=== PATIENT | female | born 1980 | race Caucasian/White ===

== ENCOUNTER 2020-10-04 20:22 | Inpatient (IN) | payer MEDICARE, MEDICAID ==
--- NOTE | 2020-10-04 21:31 | ED ---
Psych HPI <Jose Juan Rich - Last Filed: 10/05/20 02:49> - General Source: patient, police Mode of arrival: ambulatory <Tonny Mujica - Last Filed: 10/05/20 03:18> - General Chief Complaint: Psychiatric Symptoms Stated Complaint: Mental Health Time Seen by Provider: 10/04/20 20:32 - History of Present Illness Initial Comments: 40-year-old female with extensive psychiatric history presents to the emergency department for psychiatric evaluation. Patient brought to the ED via police. Patient states she was brought here to have her medication reevaluated and adjusted. Patient states she is to take antipsychotic medications but then was off of them for some period of time. Patient reports now she is taking her medication accordingly but has started drinking again. States she had a couple of beers earlier today. She does report feeling depressed and that "life is not worth living close with physician." she denies any suicidal, homicidal thoughts or ideations at this time. She has no other complaints. (Tonny Mujica) - Related Data Allergies Allergy/AdvReac Type Severity Reaction Status Date / Time haloperidol [From Haldol] Allergy Rash/Hives Verified 10/04/20 20:30 Review of Systems ROS Other: All systems not noted in ROS Statement are negative. <CandidaaldoJose Juan - Last Filed: 10/05/20 02:49> ROS Other: All systems not noted in ROS Statement are negative. <Tonny Mujica - Last Filed: 10/05/20 03:18> ROS Statement: Those systems with pertinent positive or pertinent negative responses have been documented in the HPI. Past Medical History Past Medical History: Hypertension History of Any Multi-Drug Resistant Organisms: None Reported Past Surgical History: Coronary Bypass/CABG, Heart Catheterization With Stent Past Psychological History: Anxiety, Bipolar, Depression, Panic Disorder, PTSD, Schizophrenia Smoking Status: Current every day smoker Past Alcohol Use History: Daily Past Drug Use History: Marijuana <Tonny Mujica - Last Filed: 10/05/20 03:18> General Exam Limitations: no limitations General appearance: alert, in no apparent distress Head exam: Present: atraumatic, normocephalic, normal inspection Eye exam: Present: normal appearance, PERRL, EOMI Pupils: Present: normal accommodation ENT exam: Present: normal exam, normal oropharynx, mucous membranes moist Neck exam: Present: normal inspection, full ROM. Absent: tenderness Respiratory exam: Present: normal lung sounds bilaterally. Absent: respiratory distress Cardiovascular Exam: Present: regular rate, normal rhythm, normal heart sounds Extremities exam: Present: normal inspection, full ROM, normal capillary refill Back exam: Present: normal inspection, full ROM. Absent: tenderness, CVA tenderness (R), CVA tenderness (L) Neurological exam: Present: alert, oriented X3 Psychiatric exam: Present: normal affect, depressed Skin exam: Present: warm, dry, intact, normal color <Tonny Mujica - Last Filed: 10/05/20 03:18> Course Vital Signs 10/04/20 10/05/20 20:23 02:49 Temperature 99.4 F Pulse Rate 98 80 Respiratory 18 17 Rate Blood Pressure 181/129 131/77 O2 Sat by Pulse 97 98 Oximetry Medical Decision Making - Lab Data Result diagrams: 10/04/20 23:47 10/04/20 23:47 <Jose Juan Rich - Last Filed: 10/05/20 02:49> - Lab Data Result diagrams: 10/04/20 23:47 10/04/20 23:47 <Tonny Mujica - Last Filed: 10/05/20 03:18> - Medical Decision Making I saw this patient in conjunction with the physician bilingual medical assistant. I performed independent history and physical exam. Agree with case management. Clinical certification get filed (Jose Juan Rich) 40-year-old female with extensive psychiatric history presents to emergency department with psychiatric evaluation. On physical examination, patient is very anxious and is requesting adjustments to her medication. She also reports drinking more unusual as of recently. She isn't on any homicidal, suicidal thoughts or ideations. Urine drug screen positive for marijuana. A PSA value patient. Patient will be admitted for further psychiatric management. case discused with dr rich (Tonny Mujica) - Lab Data Lab Results 10/04/20 10/04/20 10/04/20 Range/Units 21:25 21:25 23:47 WBC 7.1 (3.8-10.6) k/uL RBC 4.73 (3.80-5.40) m/uL Hgb 14.9 (11.4-16.0) gm/dL Hct 45.9 (34.0-46.0) % MCV 97.1 (80.0-100.0) fL MCH 31.6 (25.0-35.0) pg MCHC 32.5 (31.0-37.0) g/dL RDW 15.6 H (11.5-15.5) % Plt Count 310 (150-450) k/uL MPV 7.3 Neutrophils % 59 % Lymphocytes % 30 % Monocytes % 5 % Eosinophils % 3 % Basophils % 2 % Neutrophils # 4.2 (1.3-7.7) k/uL Lymphocytes # 2.2 (1.0-4.8) k/uL Monocytes # 0.3 (0-1.0) k/uL Eosinophils # 0.2 (0-0.7) k/uL Basophils # 0.1 (0-0.2) k/uL Sodium (137-145) mmol/L Potassium (3.5-5.1) mmol/L Chloride (98-107) mmol/L Carbon Dioxide (22-30) mmol/L Anion Gap mmol/L BUN (7-17) mg/dL Creatinine (0.52-1.04) mg/dL Est GFR (CKD-EPI)AfAm (>60 ml/min/1.73 sqM) Est GFR (CKD-EPI)NonAf (>60 ml/min/1.73 sqM) Glucose (74-99) mg/dL Calcium (8.4-10.2) mg/dL Total Bilirubin (0.2-1.3) mg/dL AST (14-36) U/L ALT (4-34) U/L Alkaline Phosphatase (38-126) U/L Total Protein (6.3-8.2) g/dL Albumin (3.5-5.0) g/dL Urine HCG, Qual Not Detected (Not Detectd) Urine Opiates Screen Not Detected (NotDetected) Ur Oxycodone Screen Not Detected (NotDetected) Urine Methadone Screen Not Detected (NotDetected) Ur Propoxyphene Screen Not Detected (NotDetected) Ur Barbiturates Screen Not Detected (NotDetected) U Tricyclic Antidepress Not Detected (NotDetected) Ur Phencyclidine Scrn Not Detected (NotDetected) Ur Amphetamines Screen Not Detected (NotDetected) U Methamphetamines Scrn Not Detected (NotDetected) U Benzodiazepines Scrn Not Detected (NotDetected) Urine Cocaine Screen Not Detected (NotDetected) U Marijuana (THC) Screen Detected H (NotDetected) Coronavirus (PCR) (Not Detectd) 10/04/20 10/04/20 Range/Units 23:47 23:59 WBC (3.8-10.6) k/uL RBC (3.80-5.40) m/uL Hgb (11.4-16.0) gm/dL Hct (34.0-46.0) % MCV (80.0-100.0) fL MCH (25.0-35.0) pg MCHC (31.0-37.0) g/dL RDW (11.5-15.5) % Plt Count (150-450) k/uL MPV Neutrophils % % Lymphocytes % % Monocytes % % Eosinophils % % Basophils % % Neutrophils # (1.3-7.7) k/uL Lymphocytes # (1.0-4.8) k/uL Monocytes # (0-1.0) k/uL Eosinophils # (0-0.7) k/uL Basophils # (0-0.2) k/uL Sodium 136 L (137-145) mmol/L Potassium 4.5 (3.5-5.1) mmol/L Chloride 100 (98-107) mmol/L Carbon Dioxide 28 (22-30) mmol/L Anion Gap 8 mmol/L BUN 5 L (7-17) mg/dL Creatinine 0.68 (0.52-1.04) mg/dL Est GFR (CKD-EPI)AfAm >90 (>60 ml/min/1.73 sqM) Est GFR (CKD-EPI)NonAf >90 (>60 ml/min/1.73 sqM) Glucose 121 H (74-99) mg/dL Calcium 9.5 (8.4-10.2) mg/dL Total Bilirubin 0.5 (0.2-1.3) mg/dL AST 32 (14-36) U/L ALT 17 (4-34) U/L Alkaline Phosphatase 34 L (38-126) U/L Total Protein 7.6 (6.3-8.2) g/dL Albumin 4.1 (3.5-5.0) g/dL Urine HCG, Qual (Not Detectd) Urine Opiates Screen (NotDetected) Ur Oxycodone Screen (NotDetected) Urine Methadone Screen (NotDetected) Ur Propoxyphene Screen (NotDetected) Ur Barbiturates Screen (NotDetected) U Tricyclic Antidepress (NotDetected) Ur Phencyclidine Scrn (NotDetected) Ur Amphetamines Screen (NotDetected) U Methamphetamines Scrn (NotDetected) U Benzodiazepines Scrn (NotDetected) Urine Cocaine Screen (NotDetected) U Marijuana (THC) Screen (NotDetected) Coronavirus (PCR) Not Detected (Not Detectd) Disposition <Jose Juan Rich - Last Filed: 10/05/20 02:49> Is patient prescribed a controlled substance at d/c from ED?: No Time of Disposition: 03:18 <Tonny Mujica - Last Filed: 10/05/20 03:18> Clinical Impression: Adjustment reaction of adult life Disposition: ADMITTED IP TO THIS HOSP Condition: Good
[2020-10-04 22:05] LABS: Amphetamine Screen,Urine Not Detected (NotDetected); Barbiturate Screen,Urine Not Detected (NotDetected); Benzodiazepines Screen,Urine Not Detected (NotDetected); Cocaine Screen,Urine Not Detected (NotDetected); Methadone Screen, Urine Not Detected (NotDetected); Opiate Screen,Urine Not Detected (NotDetected); Oxycodone Screen, Urine Not Detected (NotDetected); Phencyclidine Screen,Urine Not Detected (NotDetected); Tricyclic Antidepressant,Urine Not Detected (NotDetected); Urn Cannabinoid Scrn Detected (NotDetected)
[2020-10-04] MEDS ORDERED: LORazepam 2 MG/ML INJ IV STA (23:49)
[2020-10-04 23:56] LABS: Basophils # (A) 0.1 k/uL (0-0.2); Basophils % (A) 2 %; Eosinophils # (A) 0.2 k/uL (0-0.7); Eosinophils % (A) 3 %; HCT 45.9 % (34.0-46.0); HGB 14.9 gm/dL (11.4-16.0); Lymphocytes # (A) 2.2 k/uL (1.0-4.8); Lymphocytes % (A) 30 %; MCH 31.6 pg (25.0-35.0); MCHC 32.5 g/dL (31.0-37.0); MCV 97.1 fL (80.0-100.0); Mean Platelet Volume 7.3; Monocytes # (A) 0.3 k/uL (0-1.0); Monocytes % (A) 5 %; Neutrophils # (A) 4.2 k/uL (1.3-7.7); Neutrophils % (A) 59 %; Platelet Count 310 k/uL (150-450); RBC 4.73 m/uL (3.80-5.40); RDW 15.6 % (11.5-15.5); WBC 7.1 k/uL (3.8-10.6)
[2020-10-05 00:06] LABS: ALT 17 U/L (4-34); AST 32 U/L (14-36); African American GFR (CKD) >90 (>60 ml/min/1.73 sqM); Albumin 4.1 g/dL (3.5-5.0); Alkaline Phosphatase 34 U/L (38-126); Anion Gap 8 mmol/L; Blood Urea Nitrogen 5 mg/dL (7-17); Calcium 9.5 mg/dL (8.4-10.2); Carbon Dioxide 28 mmol/L (22-30); Chloride 100 mmol/L (98-107); Glucose 121 mg/dL (74-99); Non-African American GFR(CKD) >90 (>60 ml/min/1.73 sqM); Potassium 4.5 mmol/L (3.5-5.1); Sodium 136 mmol/L (137-145); Total Bilirubin 0.5 mg/dL (0.2-1.3); Total Protein 7.6 g/dL (6.3-8.2)
[2020-10-05] MEDS ORDERED: MAGNESIUM HYDROXIDE 2,400 MG/10 ML CUP PO PRN (02:21)
[2020-10-05] MEDS ORDERED: MAG HYDROX/AL HYDROX/SIMETH 30 ML CUP PO PRN (02:21)
[2020-10-05] MEDS ORDERED: LORazepam 2 MG/ML INJ IM PRN (02:24)
[2020-10-05] MEDS: NICOTINE 14MG/24HR PATCH TRANSDERM SCH (05:03)
[2020-10-05] MEDS: LORazepam 1 MG TAB PO PRN ×3 (05:03→23:58)
[2020-10-05] MEDS ORDERED: flUPHENAZine 2.5 MG/ML (MDV) 10 ML VIAL IM PRN (06:00)
--- NOTE | 2020-10-05 10:22 | P.HP ---
Psychiatric H&P - . H&P Date: 10/05/20 History & Physical: Allergies Allergy/AdvReac Type Severity Reaction Status Date / Time haloperidol From Haldol Allergy Rash/Hives Verified 10/05/20 05:14 Vital Signs Temp 98.1 F 10/05/20 05:20 Pulse 91 10/05/20 09:00 Resp 20 10/05/20 05:20 BP 141/100 10/05/20 09:00 Pulse Ox 98 10/05/20 02:49 Intake & Output 10/04/20 10/05/20 10/05/20 18:59 06:59 18:59 Weight 56.699 kg Laboratory Last Values WBC 7.1 k/uL (3.8-10.6) 10/04/20 23:47 RBC 4.73 m/uL (3.80-5.40) 10/04/20 23:47 Hgb 14.9 gm/dL (11.4-16.0) 10/04/20 23:47 Hct 45.9 % (34.0-46.0) 10/04/20 23:47 MCV 97.1 fL (80.0-100.0) 10/04/20 23:47 MCH 31.6 pg (25.0-35.0) 10/04/20 23:47 MCHC 32.5 g/dL (31.0-37.0) 10/04/20 23:47 RDW 15.6 % (11.5-15.5) H 10/04/20 23:47 Plt Count 310 k/uL (150-450) 10/04/20 23:47 MPV 7.3 10/04/20 23:47 Neutrophils % 59 % 10/04/20 23:47 Lymphocytes % 30 % 10/04/20 23:47 Monocytes % 5 % 10/04/20 23:47 Eosinophils % 3 % 10/04/20 23:47 Basophils % 2 % 10/04/20 23:47 Neutrophils # 4.2 k/uL (1.3-7.7) 10/04/20 23:47 Lymphocytes # 2.2 k/uL (1.0-4.8) 10/04/20 23:47 Monocytes # 0.3 k/uL (0-1.0) 10/04/20 23:47 Eosinophils # 0.2 k/uL (0-0.7) 10/04/20 23:47 Basophils # 0.1 k/uL (0-0.2) 10/04/20 23:47 Sodium 136 mmol/L (137-145) L 10/04/20 23:47 Potassium 4.5 mmol/L (3.5-5.1) 10/04/20 23:47 Chloride 100 mmol/L (98-107) 10/04/20 23:47 Carbon Dioxide 28 mmol/L (22-30) 10/04/20 23:47 Anion Gap 8 mmol/L 10/04/20 23:47 BUN 5 mg/dL (7-17) L 10/04/20 23:47 Creatinine 0.68 mg/dL (0.52-1.04) 10/04/20 23:47 Est GFR (CKD-EPI)AfAm >90 (>60 ml/min/1.73 sqM) 10/04/20 23:47 Est GFR (CKD-EPI)NonAf >90 (>60 ml/min/1.73 sqM) 10/04/20 23:47 Glucose 121 mg/dL (74-99) H 10/04/20 23:47 Calcium 9.5 mg/dL (8.4-10.2) 10/04/20 23:47 Total Bilirubin 0.5 mg/dL (0.2-1.3) 10/04/20 23:47 AST 32 U/L (14-36) 10/04/20 23:47 ALT 17 U/L (4-34) 10/04/20 23:47 Alkaline Phosphatase 34 U/L (38-126) L 10/04/20 23:47 Total Protein 7.6 g/dL (6.3-8.2) 10/04/20 23:47 Albumin 4.1 g/dL (3.5-5.0) 10/04/20 23:47 Urine HCG, Qual Not Detected (Not Detectd) 10/04/20 21:25 Urine Opiates Screen Not Detected (NotDetected) 10/04/20 21:25 Ur Oxycodone Screen Not Detected (NotDetected) 10/04/20 21:25 Urine Methadone Screen Not Detected (NotDetected) 10/04/20 21:25 Ur Propoxyphene Screen Not Detected (NotDetected) 10/04/20 21:25 Ur Barbiturates Screen Not Detected (NotDetected) 10/04/20 21:25 U Tricyclic Antidepress Not Detected (NotDetected) 10/04/20 21:25 Ur Phencyclidine Scrn Not Detected (NotDetected) 10/04/20 21:25 Ur Amphetamines Screen Not Detected (NotDetected) 10/04/20 21:25 U Methamphetamines Scrn Not Detected (NotDetected) 10/04/20 21:25 U Benzodiazepines Scrn Not Detected (NotDetected) 10/04/20 21:25 Urine Cocaine Screen Not Detected (NotDetected) 10/04/20 21:25 U Marijuana (THC) Screen Detected (NotDetected) H 10/04/20 21:25 Coronavirus (PCR) Not Detected (Not Detectd) 10/04/20 23:59 10/05/20 10:13 IDENTIFYING DATA: Patient is a 40-year-old female currently lives with a friend in a house is single and has 4 kids who she is currently estranged from. HPI: Patient presented to the hospital yesterday on a waste picker order by the police for psychiatric evaluation. According to petition, stated that patient had been talking to people that are not around and being scared that she will hurt herself and has been self-medicating and "talking about stuff that never happened". The petition was filled out by patient's longtime friend. Patient reported that she had been off her psychiatric medications according to ER report and has been drinking about 2 beers a day and been feeling depressed and mentioned suicidal thoughts. Patient was positive for THC in her UDS. Patient was seen in the hallways and agreeable technical proposal writer. She appeared to have poor hygiene and grooming however was attempting to be cooperative with process description writer. She claims that she was trying to get help at [facility] however became aggravated with them and claims that she was "waiting too long". She states that she had only been living in the area for about 2 weeks now and is from [facility]. She states that she was staying in a friend's house and claims that the police were called to pick her up and take her to the hospital which she agreed to. She states that she stopped taking her medications Seroquel lithium and Klonopin several months ago however claims that she wanted to get restarted back on her medications. She claims that she was feeling sad and worthless and also endorsed hopelessness. She claims that she's been feeling depressed and having suicidal thoughts at times. She endorsed anxiety. She claims that she has been drinking daily approximately 2 beers a day and states that she is having withdrawal symptoms at this time and has been hospitalized in the past for alcohol withdrawal. She states that she has been having poor sleep and poor appetite. She claims that she has been hearing voices in the past however not currently. Patient denies any suicidal or homicidal ideations intent or plan. At this time patient denies any auditory or visual hallucinations. Patient denies any flight of ideas racing thoughts and increased in goal directed behavior. Patient admits to using cigarettes daily, alcohol as noted above. She states that she smokes marijuana daily. PAST PSYCHIATRIC HISTORY: Patient states that she has a history of schizoaffective disorder. She claims that she used to be on lithium, Seroquel and Klonopin. She states that she has had multiple psychiatric hospitalizations in the past including at [facility] and [facility]. She states that she was attempting to get follow-up at [facility]. She states that she overdosed once in the past and also used to cut herself. PMH: Hypertension, TBI, CAD with history of CABG. ALLERGIES: as per EMR CHEMICAL DEPENDENCY HISTORY: as per HPI FAMILY PSYCHIATRIC/SUBSTANCE USE HISTORY: States that her father suffered from depression. SOCIAL HISTORY: Patient was born and raised in [place]. She states that she completed up to the eighth grade of school and then dropped out. She states that she has been to snf twice in the past for assault and battery charges. She claims that she currently lives with a friend in a house is single and has 4 kids were strangers to her.. MENTAL STATUS EXAM: General Appearance: Patient appears to be disheveled in appearance, older than stated age is alert, directable, and attempts to cooperate. Patient appears to have poor hygiene and grooming. Behavior: Patient is seated without any agitated behavior. Directable. Speech: Patient's speech is fluent and nonpressured. Soft tone of voice Mood/Affect: Patient reports their mood is depressed and anxious, affect is congruent and constricted. Suicidality/Homicidality: Patient denies having any homicidal ideation intent or plan. Denies any suicidal ideations intent or plan Perceptions: Patient denies any visual hallucinations and denies any auditory hallucinations Though content/process: Rambles, tangential/circumstantial. Logical. Denies any paranoia or delusions. Memory and concentration: AOX3, grossly intact for the purposes of this session. Can spell "WORLD" backwards Judgment and insight: poor STRENGTHS/WEAKNESSES: strength is that patient is resilient. Weakness is that patient has poor judgment INTELLECT: average IMPRESSIONS: Schizoaffective disorder, depressive type History of TBI Alcohol use disorder, currently in withdrawal Cannabis use disorder Nicotine dependence PLAN: -Patient is admitted under voluntary status to [facility] for stabilization of psychiatric symptoms and safety. Patient has signed adult voluntary form and medication consent and is placed in patient's chart. -Medications : Will start patient on Seroquel 50 mg daily at bedtime for mood stabilization/insomnia. Will also start patient on lithium 300 mg twice a day for mood stabilization. We'll start Librium taper, 25 mg 3 times a day. -Ativan and Haldol PRN for agitation/aggression -Started thiamine, MVM for etoh use -CIWA protocol with Ativan PRN for ETOH withdrawal -Patient was counselled on substance abuse and desired to cut back on use however was refusing rehab -Patient was informed of the risks, benefits and side effects of the medication and patient verbally consented to taking the medications. Patient signed med consent form and was placed in chart. -Internal Medicine consult to perform medical evaluation and physical. -NRT - nicotine patch -SW on board for discharge planning. Encourage patient to participate in groups to work on coping skills.
[2020-10-05] MEDS: chlordiazePOXIDE 25 MG CAP PO SCH ×3 (12:39→21:13)
[2020-10-05] MEDS: LITHIUM CARBONATE 300 MG CAP PO SCH ×2 (12:39→21:12)
[2020-10-05] MEDS ORDERED: QUEtiapine 50 MG TAB PO SCH (21:00)
--- NOTE | 2020-10-06 02:27 | P.PN ---
Progress Note - Text Progress Note Date: 10/05/20 i was unable to evaluate patient , she was very upset to be woken up and started using foul and threatening language please contact sounds physicians when patient is more stable and appropriate for evaluation .
[2020-10-06] MEDS: LITHIUM CARBONATE 300 MG CAP PO SCH ×2 (08:52→21:09)
[2020-10-06] MEDS: NICOTINE 14MG/24HR PATCH TRANSDERM SCH (08:52)
[2020-10-06] MEDS: chlordiazePOXIDE 25 MG CAP PO SCH ×3 (08:54→21:09)
[2020-10-06] MEDS: LORazepam 1 MG TAB PO PRN ×2 (08:54→22:38)
--- NOTE | 2020-10-06 10:35 | P.PN ---
Progress Note - Text Progress Note Date: 10/06/20 Interval history: Patient was seen resting in bed and was directable and agreeable to speak with production underwriter. The patient states that she feels agitated but is able to control her anger. She states that she has been trying to meditate in order to deal with "all those who are taking advantage and using me."at this time, the patient is not reporting any suicidal or homicidal ideation, intention, and/or plan. She is not reporting any auditory or visual hallucinations. She does appear to be somewhat paranoid stating that there have been many people taking advantage of her and her "abilities" outside of this hospital. She does express that she has the ability to read energy and people and to channel it. She has been adherent with her medications and is not reporting any significant side effects at this time. Mental status exam: General Appearance: [Patient appears to be stated age is alert, directable, and cooperative.] The patient has multiple tattoos. Behavior: [No agitated behavior. Patient is calm and directable]. The patient appears to try to meditate while talking with this provider. Eye contact is intermittent. Speech: Patient's speech is fluent and nonpressured. Mood/Affect: Mood is described as irritable, affect is bizarre but otherwise euthymic. Suicidality/Homicidality: Patient denies having any suicidal or homicidal ideation intent or plan. Perceptions: Patient denies any auditory or visual hallucinations. Though content/process: Some delusional thought content in the form paranoia is endorsed. Thought process appears to have some loose associations. Some magical thinking. Memory and concentration: AOX3, grossly intact for the purposes of this session Judgment and insight: improving mildly Assessment/Plan: Continue with current diagnosis. Patient continues to meet criteria for inpatient psychiatric admission for symptom stabilization and safety. We will increase the patient's lithium to 75 mg by mouth at bedtime for mood stabilization/insomnia. We will continue her current medication regimen of lithium and her Librium. We will begin to taper Librium tomorrow pending CIWA. Monitor for medication compliance and for any psychotropic medication side effects. Will continue to monitor ongoing response to treatment. Encouraged participation in milieu.
[2020-10-06] MEDS: ACETAMINOPHEN TAB 325 MG TAB PO PRN (10:52)
[2020-10-06] MEDS: LIDOCAINE 5% PATCH TOPICAL SCH (11:18)
[2020-10-06 15:33] LABS: Hemoglobin A1C 5.3 % (4.0-6.0)
[2020-10-06] MEDS: QUEtiapine 25 MG TAB PO SCH (21:09)
[2020-10-07] MEDS: chlordiazePOXIDE 25 MG CAP PO SCH ×2 (08:45→20:22)
[2020-10-07] MEDS: LORazepam 1 MG TAB PO PRN (08:45)
[2020-10-07] MEDS: LITHIUM CARBONATE 300 MG CAP PO SCH ×2 (08:45→20:21)
[2020-10-07] MEDS: NICOTINE 14MG/24HR PATCH TRANSDERM SCH (09:10)
[2020-10-07] MEDS: LIDOCAINE 5% PATCH TOPICAL SCH (09:10)
--- NOTE | 2020-10-07 10:49 | P.PN ---
Progress Note - Text Progress Note Date: 10/07/20 Interval history: Patient was seen resting in bed and was directable and agreeable to speak with commercial underwriter. The patient reports that she is feeling tired. She states that the medications that she is currently receiving are "just with the doctor ordered." The patient is not reporting any suicidal or homicidal ideation, intention, and/or plan. She is not reporting any auditory or visual hallucinations. She has been adherent with her medications and is not reporting any significant side effects at this time. Patient states that she is glad to be sleeping as she has not slept for weeks prior to this admission. She is not reporting any chest pain, shortness of breath, palpitations, or nausea. Mental status exam: General Appearance: Patient appears to be somnolent, slightly disheveled, and has multiple tattoos. Behavior: Normal psychomotor activity today. Somnolent. Poor eye contact. Speech: Patient's speech is nonspontaneous, low in volume, and minimal. Mood/Affect: Mood is described as tired, affect is blunted. Suicidality/Homicidality: Patient denies having any suicidal or homicidal ideation intent or plan. Perceptions: Patient denies any auditory or visual hallucinations. Though content/process: Currently the patient is not endorsing any delusional thought content. Thought process appears to be linear and logical. Memory and concentration: AOX3, grossly intact for the purposes of this session Judgment and insight: improving mildly Assessment/Plan: Continue with current diagnosis. Patient continues to meet criteria for inpatient psychiatric admission for symptom stabilization and safety. We will continue the patient's Seroquel at 75 mg at bedtime. Continue lithium at her current dose. CIWA score of 5. We will start taper of librium to 25 mg twice daily for alcohol withdrawal. Monitor for medication compliance and for any psychotropic medication side effects. Will continue to monitor ongoing response to treatment. Encouraged participation in milieu.
[2020-10-07] MEDS: QUEtiapine 25 MG TAB PO SCH (20:21)
[2020-10-08 04:46] VITALS: RESP 18
[2020-10-08] MEDS: ACETAMINOPHEN TAB 325 MG TAB PO PRN (05:14)
[2020-10-08 05:18] LABS: Glucose,Whole Blood 103 mg/dL (75-99)
[2020-10-08] MEDS: LORazepam 1 MG TAB PO PRN ×2 (06:58→15:37)
[2020-10-08] MEDS: LIDOCAINE 5% PATCH TOPICAL SCH (08:05)
[2020-10-08] MEDS: NICOTINE 14MG/24HR PATCH TRANSDERM SCH (08:06)
[2020-10-08] MEDS: LITHIUM CARBONATE 300 MG CAP PO SCH ×2 (08:06→21:02)
[2020-10-08] MEDS: chlordiazePOXIDE 25 MG CAP PO SCH (08:09)
--- NOTE | 2020-10-08 10:25 | P.PN ---
Progress Note - Text Progress Note Date: 10/08/20 Interval History: Patient was seen wandering the hallways and was directable and agreeable to sp clarisa with quality analyst/technical writer in the office. Patient was initially calm and cooperative with quality analyst/technical writer. She was rambling significantly today was tangential in her thought process. She spoke about feeling like a "lab rat for so many years". She spoke about her different medications that she been on in the past and was fairly preoccupied today with being restarted back on her Klonopin. She refused several other medications to help with anxiety and was fairly focused on Klonopin and states that "it's the only thing that works for me". She was however agreeable to be started on a low dose of Zoloft instead. She states that she is having odd dreams at night time and was explaining them to quality analyst/technical writer. She states that she feels her mood is less labile on the current medications. She states that she is trying to go to some groups and participate as best as she can. She adamantly refused rehab today and believe that quality analyst/technical writer was trying to "ridicule me" by suggesting going to rehab. She was however interested in going to a partial hospitalization program upon discharge. At this time patient denies any suicidal or homical ideations, intent or plan. Patient denies any auditory, visual hallucinations. Patient denies any side effects from the medications and has been compliant with meds. Mental Status Exam: General Appearance: Patient appears to be disheveled in appearance, older than stated age is alert, directable, and attempts to cooperate. Patient appears to have mildly improving hygiene and grooming. Behavior: Patient is seated without any agitated behavior. Directable however argumentative at times. Speech: Patient's speech is fluent and nonpressured. Soft tone of voice Mood/Affect: Patient reports their mood is "getting there", affect is congruent and constricted. Suicidality/Homicidality: Patient denies having any homicidal ideation intent or plan. Denies any suicidal ideations intent or plan Perceptions: Patient denies any visual hallucinations and denies any auditory hallucinations Though content/process: Rambles, tangential/circumstantial. Logical. Denies any paranoia or delusions. Argumentative at times. Memory and concentration: AOX3, grossly intact for the purposes of this session. Can spell "WORLD" backwards Judgment and insight: poor, improving mildly Assessment Schizoaffective disorder, depressive type History of TBI Alcohol use disorder, currently in withdrawal Cannabis use disorder Nicotine dependence Plan: -Patient continues to meet criteria for inpatient psychiatric admission for symptom stabilization and safety. Patient has signed adult voluntary form and medication consent and was placed in patient's chart. -Medications: Will increase Seroquel to 100 mg daily at bedtime for mood stabilization/insomnia. Continue lithium 300 mg twice a day for mood stabilization. Continue to taper Librium. -thiamine, MVM for etoh use -CIWA protocol with Ativan PRN for ETOH withdrawal -When necessary Ativan and Haldol for agitation/aggression. -NRT - nicotine patch -SW on board for discharge planning. Encouraged the patient to participate in milieu. Patient continues to be refusing rehab and however was interested in doing a partial hospitalization program. soap worker to look into program today for patient and looking at possible discharge in 1-2 days
[2020-10-08] MEDS: SERTRALINE 25 MG TAB PO SCH (11:35)
[2020-10-08] MEDS ORDERED: QUEtiapine 100 MG TAB PO SCH (21:00)
[2020-10-08] MEDS ORDERED: chlordiazePOXIDE 25 MG CAP PO ONE (21:00)
[2020-10-09 04:17] VITALS: BP 122/84; PULSE 104; TEMP 97.5
[2020-10-09] MEDS ORDERED: chlordiazePOXIDE 25 MG CAP PO ONE (09:00)
[2020-10-09] MEDS: NICOTINE 14MG/24HR PATCH TRANSDERM SCH (09:38)
[2020-10-09] MEDS: LITHIUM CARBONATE 300 MG CAP PO SCH (09:38)
[2020-10-09] MEDS: SERTRALINE 25 MG TAB PO SCH (09:38)
[2020-10-09] MEDS: LIDOCAINE 5% PATCH TOPICAL SCH (09:47)
--- NOTE | 2020-10-09 11:30 | P.DS ---
Providers Date of admission: 10/05/20 02:18 Expected date of discharge: 10/09/20 Attending physician: Ryan Galicia MD Consults: 10/05/20 02:21 Consult Physician Routine Consulting Provider: Jake Lemon Consult Reason/Comments: H and P Do you want consulting provider notified?: Yes Primary care physician: Stated None - Discharge Diagnosis(es) (1) Schizoaffective disorder, depressive type Current Visit: Yes Status: Acute Priority: High (2) History of traumatic brain injury Current Visit: Yes Status: Acute Priority: Medium (3) Alcohol abuse Current Visit: Yes Status: Acute Priority: High (4) Cannabis use disorder, mild, abuse Current Visit: Yes Status: Acute Priority: Low (5) Nicotine dependence Current Visit: Yes Status: Acute Priority: Low Hospital Course: Admission HPI: Admission note was completed by senior mortgage underwriter "Patient is a 40-year-old female currently lives with a friend in a house is single and has 4 kids who she is currently estranged from. Patient presented to the hospital yesterday on a coal picker order by the police for psychiatric evaluation. According to petition, stated that patient had been talking to people that are not around and being scared that she will hurt herself and has been self-medicating and "talking about stuff that never happened". The petition was filled out by patient's longtime friend. Patient reported that she had been off her psychiatric medications according to ER report and has been drinking about 2 beers a day and been feeling depressed and mentioned suicidal thoughts. Patient was positive for THC in her UDS. Patient was seen in the hallways and agreeable gag writer. She appeared to have poor hygiene and grooming however was attempting to be cooperative with senior mortgage underwriter. She claims that she was trying to get help at [facility] however became aggravated with them and claims that she was "waiting too long". She states that she had only been living in the area for about 2 weeks now and is from [facility]. She states that she was staying in a friend's house and claims that the police were called to pick her up and take her to the hospital which she agreed to. She states that she stopped taking her medications Seroquel lithium and Klonopin several months ago however claims that she wanted to get restarted back on her medications. She claims that she was feeling sad and worthless and also endorsed hopelessness. She claims that she's been feeling depressed and having suicidal thoughts at times. She endorsed anxiety. She claims that she has been drinking daily approximately 2 beers a day and states that she is having withdrawal symptoms at this time and has been hospitalized in the past for alcohol withdrawal. She states that she has been having poor sleep and poor appetite. She claims that she has been hearing voices in the past however not currently. Patient denies any suicidal or homici maribell ideations intent or plan. At this time patient denies any auditory or visual hallucinations. Patient denies any flight of ideas racing thoughts and increased in goal directed behavior. Patient admits to using cigarettes daily, alcohol as noted above. She states that she smokes marijuana daily." Hospital course: Upon admission to the unit patient was initially bizarre/psychotic and depresse d. Patient was initially involuntary however directable and agreeable to commence treatment and signed adult voluntary form. Patient got along well with other patients on the unit and followed unit protocol. Patient was compliant with the medications and denied any side effects throughout hospital course. Patient was started on Seroquel and titrated up to dose of 100 mg daily at bedtime for mood stabilization/insomnia. Patient was also started on lithium and titrated up to a dose of 300 mg twice a day for mood stabilization. Patient was also started on Zoloft and titrated up to dose of 50 mg daily for mood/anxiety. Patient was placed on a Librium taper for alcohol withdrawal along with CIWA protocol and Ativan as needed. Patient spoke of her stressors and engaged in therapy both group and individual. Patient was also seen by medical team for history and physical exam. Throughout the course of the hospitalization patient gradually improved with regards to mood, anxiety, psychosis, sleep and displayed improvement in her insight and judgment back to baseline. On the day of discharge patient denied any suicidal or homicidal ideations intent or plan denied any auditory or visual hallucinations. Patient endorsed wanting to live for her future and her health. The patient denied any access to guns or weapons. Patient denied any paranoia and did not endorse any delusions. Patient does have a significant history of substance abuse and was counseled on abstaining from all substances including alcohol and marijuana. Patient was offered however declined inpatient substance-abuse rehab. Patient elected to do outpatient substance use treatment program through [facility]. Patient was also counseled on the medications and need for regular compliance and was encouraged to follow-up with their outpatient appointment for mental health and also for primary care. Prior to discharge a family meeting will be arranged with patient's friend over the phone by social work therapist to answer any questions and ensure safety upon discharge. Patient will be discharged to her friend's house with follow-up at [facility]. Patient refused any medications for alcohol cravings. Mental status exam: General Appearance: Patient appears to be older than stated age is alert, directable, and cooperative. Patient is in no acute distress and has improved hygiene and grooming Behavior: Patient is calmly seated without any agitated behavior. Speech: Patient's speech is fluent and nonpressured. Mood/Affect: Patient reports their mood is "fine", affect is congruent Suicidality/Homicidality: Patient denies having any suicidal or homicidal ideation intent or plan. Perceptions: Patient denies any auditory or visual hallucinations. Though content/process: There is no evidence of any delusional thought content and thought process is linear and goal-directed. Rambles at times. Memory and concentration: AOX3, grossly intact for the purposes of this session. Can spell "WORLD" backwards correctly. Judgment and insight: chronically poor, however has improved with guarded prognosis Impression: Schizoaffective disorder, depressive type History of TBI Alcohol abuse Cannabis use disorder Nicotine dependence Plan: -Continue with discharge today as patient has improved and stabilized psychiatrically and is not currently an imminent threat to herself and/or others. Patient will remain at chronically elevated risk for harm to self and/or others due to her polysubstance abuse and chronically poor insight and judgment. -Continue medications: Continue Seroquel 100 mg daily at bedtime for mood stabil ization/psychosis, Zoloft 50 mg daily for mood/anxiety, lithium 300 mg twice a day for mood stabilization. -Patient was counseled on the need for medication compliance and appropriate follow-up at mental health and also primary care for medical issues. Patient verbalized understanding and agreed. -Social work to arrange for and conduct family meeting to ensure safety upon discharge and answer any questions/concerns. Social work also to arrange for patients follow up appointments with [facility] for psychiatric care along with follow up with primary care provider. -Patient counseled on abstaining from recreational drugs and marijuana and alcohol. Was informed/educated on the adverse effects on their physical and mental health. Patient verbally agreed and understood. Patient was offered substance abuse treatment however declined at this time and wanted to do outpatient treatment. Patient also declined alcohol cravings medications. -Patient was instructed to return to the hospital or seek immediate medical care if their psychiatric or medical symptoms do worsen or reoccur. Allergies Allergy/AdvReac Type Severity Reaction Status Date / Time haloperidol [From Haldol] Allergy Rash/Hives Verified 10/05/20 05:14 Laboratory Results WBC 7.1 k/uL (3.8-10.6) 10/04/20 23:47 RBC 4.73 m/uL (3.80-5.40) 10/04/20 23:47 Hgb 14.9 gm/dL (11.4-16.0) 10/04/20 23:47 Hct 45.9 % (34.0-46.0) 10/04/20 23:47 MCV 97.1 fL (80.0-100.0) 10/04/20 23:47 MCH 31.6 pg (25.0-35.0) 10/04/20 23:47 MCHC 32.5 g/dL (31.0-37.0) 10/04/20 23:47 RDW 15.6 % (11.5-15.5) H 10/04/20 23:47 Plt Count 310 k/uL (150-450) 10/04/20 23:47 MPV 7.3 10/04/20 23:47 Neutrophils % 59 % 10/04/20 23:47 Lymphocytes % 30 % 10/04/20 23:47 Monocytes % 5 % 10/04/20 23:47 Eosinophils % 3 % 10/04/20 23:47 Basophils % 2 % 10/04/20 23:47 Neutrophils # 4.2 k/uL (1.3-7.7) 10/04/20 23:47 Lymphocytes # 2.2 k/uL (1.0-4.8) 10/04/20 23:47 Monocytes # 0.3 k/uL (0-1.0) 10/04/20 23:47 Eosinophils # 0.2 k/uL (0-0.7) 10/04/20 23:47 Basophils # 0.1 k/uL (0-0.2) 10/04/20 23:47 Sodium 136 mmol/L (137-145) L 10/04/20 23:47 Potassium 4.5 mmol/L (3.5-5.1) 10/04/20 23:47 Chloride 100 mmol/L (98-107) 10/04/20 23:47 Carbon Dioxide 28 mmol/L (22-30) 10/04/20 23:47 Anion Gap 8 mmol/L 10/04/20 23:47 BUN 5 mg/dL (7-17) L 10/04/20 23:47 Creatinine 0.68 mg/dL (0.52-1.04) 10/04/20 23:47 Est GFR (CKD-EPI)AfAm >90 (>60 ml/min/1.73 sqM) 10/04/20 23:47 Est GFR (CKD-EPI)NonAf >90 (>60 ml/min/1.73 sqM) 10/04/20 23:47 Glucose 121 mg/dL (74-99) H 10/04/20 23:47 POC Glucose (mg/dL) 103 mg/dL (75-99) H 10/08/20 05:16 POC Glu Director Of Digital Platforms ID Indio Davalos 10/08/20 05:[address] Glu mg/dL 105 10/06/20 02:00 Hemoglobin A1c 5.3 % (4.0-6.0) 10/06/20 02:00 Calcium 9.5 mg/dL (8.4-10.2) 10/04/20 23:47 Total Bilirubin 0.5 mg/dL (0.2-1.3) 10/04/20 23:47 AST 32 U/L (14-36) 10/04/20 23:47 ALT 17 U/L (4-34) 10/04/20 23:47 Alkaline Phosphatase 34 U/L (38-126) L 10/04/20 23:47 Total Protein 7.6 g/dL (6.3-8.2) 10/04/20 23:47 Albumin 4.1 g/dL (3.5-5.0) 10/04/20 23:47 Triglycerides 105 mg/dL (<150) 10/06/20 02:00 Cholesterol 201 mg/dL (<200) H 10/06/20 02:00 LDL Cholesterol, Calc 118 mg/dL (0-99) H 10/06/20 02:00 HDL Cholesterol 62 mg/dL (40-60) H 10/06/20 02:00 TSH 1.980 mIU/L (0.465-4.680) 10/06/20 02:00 Urine HCG, Qual Not Detected (Not Detectd) 10/04/20 21:25 Urine Opiates Screen Not Detected (NotDetected) 10/04/20 21:25 Ur Oxycodone Screen Not Detected (NotDetected) 10/04/20 21:25 Urine Methadone Screen Not Detected (NotDetected) 10/04/20 21:25 Ur Propoxyphene Screen Not Detected (NotDetected) 10/04/20 21:25 Ur Barbiturates Screen Not Detected (NotDetected) 10/04/20 21:25 U Tricyclic Antidepress Not Detected (NotDetected) 10/04/20 21:25 Ur Phencyclidine Scrn Not Detected (NotDetected) 10/04/20 21:25 Ur Amphetamines Screen Not Detected (NotDetected) 10/04/20 21:25 U Methamphetamines Scrn Not Detected (NotDetected) 10/04/20 21:25 U Benzodiazepines Scrn Not Detected (NotDetected) 10/04/20 21:25 Urine Cocaine Screen Not Detected (NotDetected) 10/04/20 21:25 U Marijuana (THC) Screen Detected (NotDetected) H 10/04/20 21:25 Coronavirus (PCR) Not Detected (Not Detectd) 10/04/20 23:59 Vital Signs Temp 97.5 F L 10/09/20 04:16 Pulse 104 H 10/09/20 04:16 Resp 18 10/09/20 04:16 BP 122/84 10/09/20 04:16 Pulse Ox 98 10/08/20 04:45 Patient Condition at Discharge: Stable Plan - Discharge Summary New Discharge Prescriptions: New Nicotine 14Mg/24Hr Patch [Habitrol] 1 patch TRANSDERM DAILY 14 Days patch Lidocaine 5% Patch [Lidoderm 5% Patch] 1 patch TOPICAL DAILY 14 Days patch [place] Carbonate 300 mg PO BID 30 Days cap QUEtiapine [SEROquel] 100 mg PO HS 30 Days tab Acetaminophen Tab [Tylenol] 650 mg PO Q4HR PRN tab PRN Reason: Pain/Discomfort Sertraline [Zoloft] 50 mg PO DAILY 30 Days tab Discharge Medication List Acetaminophen Tab [Tylenol] 650 mg PO Q4HR PRN tab 10/09/20 [Rx] Lidocaine 5% Patch [Lidoderm 5% Patch] 1 patch TOPICAL DAILY 14 Days patch 10/09/20 [Rx] [place] Carbonate 300 mg PO BID 30 Days cap 10/09/20 [Rx] Nicotine 14Mg/24Hr Patch [Habitrol] 1 patch TRANSDERM DAILY 14 Days patch 10/09/20 [Rx] QUEtiapine [SEROquel] 100 mg PO HS 30 Days tab 10/09/20 [Rx] Sertraline [Zoloft] 50 mg PO DAILY 30 Days tab 10/09/20 [Rx] Follow up Appointment(s)/Referral(s): None,Stated [Primary Care Provider] - 1-2 days Activity/Diet/Wound Care/Special Instructions: Activity and diet as tolerated. Avoid the use of street drugs and alcohol. Take all medications as prescribed. When you are in need of refills on your medications please contact your medical provider and/or outpatient psychiatrist to have this done. Please go to scheduled outpatient appointment for aftercare treatment. If symptoms return or become worse, call the crisis line at and/or go to the nearest emergency room for evaluation. Discharge Disposition: HOME SELF-CARE
[2020-10-09] MEDS: LORazepam 1 MG TAB PO PRN (15:24)
[2020-10-10] MEDS ORDERED: SERTRALINE 50 MG TAB PO SCH (09:00)
== END 2020-10-09 17:22 | disposition home or self-care (01) | DRG 885 ==
LOC: EC 20:22 → 3MHU 10-05 02:18
PROVIDERS: ADMIT Psychiatry & Neurology Psychiatry; ATTEND Psychiatry & Neurology Psychiatry
DX: F25.1 Schizoaffective disorder, depressive type (principal); F10.239 Alcohol dependence with withdrawal, unspecified; R45.851 Suicidal ideations; F17.210 Nicotine dependence, cigarettes, uncomplicated; F12.10 Cannabis abuse, uncomplicated; F31.9 Bipolar disorder, unspecified; Z20.822 Contact with and (suspected) exposure to COVID-19; F41.0 Panic disorder [episodic paroxysmal anxiety]; F43.10 Post-traumatic stress disorder, unspecified; F43.20 Adjustment disorder, unspecified; G47.00 Insomnia, unspecified; I10 Essential (primary) hypertension; I25.10 Atherosclerotic heart disease of native coronary artery without angina pectoris; Z63.8 Other specified problems related to primary support group; Z79.899 Other long term (current) drug therapy; Z81.8 Family history of other mental and behavioral disorders; Z87.820 Personal history of traumatic brain injury; Z95.1 Presence of aortocoronary bypass graft
CPT/HCPCS: 36415; 80053; 80061; 80306; 81025; 82075; 83036; 84443; 85025; 87635; 96374; 99285

== ENCOUNTER 2020-12-23 22:09 | Inpatient (IN) | payer MEDICARE, MEDICAID ==
[2020-12-23 22:45] LABS: Amorphous Sediment,Urine Rare /hpf; Appearance,Urine Clear (Clear); Bacteria,Urine Rare /hpf; Bilirubin,Urine Negative (Negative); Blood,Urine Trace (Negative); Color,Urine Light Yellow; Glucose,Urine (UA) Negative (Negative); Hyaline Casts,Urine 1 /lpf (0-2); Ketones,Urine Negative (Negative); Leukocyte Esterase,Urine Negative (Negative); Mucus,Urine Rare /hpf; Nitrite,Urine Negative (Negative); Protein,Urine Trace (Negative); RBC,Urine <1 /hpf (0-5); Specific Gravity,Urine 1.005 (1.001-1.035); Squamous Epithelial Cell,Urine 5 /hpf (0-4); Urobilinogen,Urine <2.0 mg/dL (<2.0); WBC,Urine 1 /hpf (0-5)
[2020-12-23 22:47] LABS: Amphetamine Screen,Urine Not Detected (NotDetected); Barbiturate Screen,Urine Not Detected (NotDetected); Benzodiazepines Screen,Urine Not Detected (NotDetected); Cocaine Screen,Urine Not Detected (NotDetected); Methadone Screen, Urine Not Detected (NotDetected); Opiate Screen,Urine Not Detected (NotDetected); Oxycodone Screen, Urine Not Detected (NotDetected); Phencyclidine Screen,Urine Not Detected (NotDetected); Tricyclic Antidepressant,Urine Not Detected (NotDetected); Urn Cannabinoid Scrn Detected (NotDetected)
--- NOTE | 2020-12-23 22:57 | ED ---
Alcohol HPI - General Chief Complaint: Psychiatric Symptoms Stated Complaint: Mental Health Time Seen by Provider: 12/23/20 22:10 Source: patient, police, RN notes reviewed, old records reviewed Mode of arrival: ambulatory Limitations: no limitations - History of Present Illness Initial Comments: This is a 32-year-old female DF for evaluation patient presents today for evaluation of significant alcohol intoxication she is petition by police for psychiatric symptoms. Patient has history of psychiatric illness poor strain currently secondary to intoxication MD Complaint: alcohol intoxication Last Drink: just FILE CLERK DATA ENTRY -: minute(s) Previous Visits for Alcohol Intoxication?: Yes Recent Trauma: No Treatments Prior to Arrival: none Chronic Alcohol Use: Yes - Related Data Home Medications Medication Instructions Recorded Confirmed Acetaminophen/Pamabrom [Midol 1 - 2 tab PO DAILY PRN 12/24/20 12/24/20 [place]] QUEtiapine FUMARATE [SEROquel XR] 150 mg PO HS 12/24/20 12/24/20 QUEtiapine FUMARATE [SEROquel] 25 mg PO BID 12/24/20 12/24/20 Sertraline [Zoloft] 100 mg PO DAILY 12/24/20 12/24/20 diphenhydrAMINE HCL [Benadryl] 25 mg PO DAILY PRN 12/24/20 12/24/20 Previous Rx's Medication Instructions Recorded [place] Carbonate 300 mg PO BID 30 Days cap 10/09/20 Allergies Allergy/AdvReac Type Severity Reaction Status Date / Time haloperidol [From Haldol] Allergy Rash/Hives Verified 10/05/20 05:14 Review of Systems ROS Statement: Those systems with pertinent positive or pertinent negative responses have been documented in the HPI. ROS Other: All systems not noted in ROS Statement are negative. Past Medical History Past Medical History: Dementia, Hypertension History of Any Multi-Drug Resistant Organisms: None Reported Past Surgical History: Coronary Bypass/CABG, Heart Catheterization With Stent Past Anesthesia/Blood Transfusion Reactions: No Reported Reaction Date of Last Stent Placement:: unknown. Past Psychological History: Anxiety, Bipolar, Depression, Panic Disorder, PTSD, Schizophrenia Smoking Status: Current every day smoker, Vaper Past Alcohol Use History: Daily Past Drug Use History: Marijuana General Exam Limitations: no limitations General appearance: alert, in no apparent distress, appears intoxicated, anxious Head exam: Present: atraumatic, normocephalic, normal inspection Eye exam: Present: normal appearance, PERRL, EOMI. Absent: scleral icterus, conjunctival injection, periorbital swelling ENT exam: Present: normal exam, mucous membranes moist Neck exam: Present: normal inspection. Absent: tenderness, meningismus, lymphadenopathy Respiratory exam: Present: normal lung sounds bilaterally. Absent: respiratory distress, wheezes, rales, rhonchi, stridor Cardiovascular Exam: Present: regular rate, normal rhythm, normal heart sounds. Absent: systolic murmur, diastolic murmur, rubs, gallop, clicks GI/Abdominal exam: Present: soft, normal bowel sounds. Absent: distended, tenderness, guarding, rebound, rigid Extremities exam: Present: normal inspection, full ROM, normal capillary refill. Absent: tenderness, pedal edema, joint swelling, calf tenderness Back exam: Present: normal inspection Neurological exam: Present: alert, oriented X3, CN II-XII intact Psychiatric exam: Present: normal affect, normal mood Skin exam: Present: warm, dry, intact, normal color. Absent: rash Course Vital Signs 12/23/20 12/24/20 22:11 02:00 Temperature 98.5 F Pulse Rate 98 78 Respiratory 20 18 Rate Blood Pressure 179/82 122/82 O2 Sat by Pulse 98 98 Oximetry - Reevaluation(s) Reevaluation #1: 12/24/20 01:06 Medical record is reviewed Reevaluation #2: 12/24/20 04:06 Medically clear for psychiatric evaluation Medical Decision Making - Medical Decision Making 40 female seen and evaluated for psychiatric illness. Patient be admitted for psychiatric evaluation and treatment - Lab Data Result diagrams: 12/24/20 07:50 12/24/20 07:50 Lab Results 12/23/20 12/23/20 12/24/20 Range/Units 22:30 22:30 04:46 Urine Color Light Yellow Urine Appearance Clear (Clear) Urine pH 6.0 (5.0-8.0) Ur Specific [place] 1.005 (1.001-1.035) Urine Protein Trace H (Negative) Urine Glucose (UA) Negative (Negative) Urine Ketones Negative (Negative) Urine Blood Trace H (Negative) Urine Nitrite Negative (Negative) Urine Bilirubin Negative (Negative) Urine Urobilinogen <2.0 (<2.0) mg/dL Ur Leukocyte Esterase Negative (Negative) Urine RBC <1 (0-5) /hpf Urine WBC 1 (0-5) /hpf Ur Squamous Epith Cells 5 H (0-4) /hpf Amorphous Sediment Rare H (None) /hpf Urine Bacteria Rare H (None) /hpf Hyaline Casts 1 (0-2) /lpf Urine Mucus Rare H (None) /hpf Urine HCG, Qual Not Detected (Not Detectd) Urine Opiates Screen Not Detected (NotDetected) Ur Oxycodone Screen Not Detected (NotDetected) Urine Methadone Screen Not Detected (NotDetected) Ur Propoxyphene Screen Not Detected (NotDetected) Ur Barbiturates Screen Not Detected (NotDetected) U Tricyclic Antidepress Not Detected (NotDetected) Ur Phencyclidine Scrn Not Detected (NotDetected) Ur Amphetamines Screen Not Detected (NotDetected) U Methamphetamines Scrn Not Detected (NotDetected) U Benzodiazepines Scrn Not Detected (NotDetected) Urine Cocaine Screen Not Detected (NotDetected) U Marijuana (THC) Screen Detected H (NotDetected) Coronavirus (PCR) Not Detected (Not Detectd) Disposition Clinical Impression: Drug-induced psychotic disorder, Cannabis use disorder, mild, abuse, Alcohol abuse, Schizoaffective disorder, depressive type, Acute psychosis Disposition: TRANSFER TO PSYCH HOSP/UNIT Condition: Fair Is patient prescribed a controlled substance at d/c from ED?: No
[2020-12-24] MEDS ORDERED: NICOTINE 21MG/24HR PATCH TRANSDERM STA (05:26)
[2020-12-24] MEDS ORDERED: LORazepam 1 MG TAB PO STA (05:26)
[2020-12-24] MEDS ORDERED: ZIPRASIDONE 20 MG VIAL IM STA (06:03)
[2020-12-24] MEDS ORDERED: MAG HYDROX/AL HYDROX/SIMETH 30 ML CUP PO PRN (06:18)
[2020-12-24] MEDS ORDERED: ACETAMINOPHEN TAB 325 MG TAB PO PRN (06:18)
[2020-12-24] MEDS ORDERED: MAGNESIUM HYDROXIDE 2,400 MG/10 ML CUP PO PRN (06:18)
[2020-12-24] MEDS ORDERED: flUPHENAZine 2.5 MG/ML (MDV) 10 ML VIAL IM PRN (06:18)
[2020-12-24] MEDS ORDERED: LORazepam 2 MG/ML INJ IM PRN (06:18)
[2020-12-24 08:06] LABS: Basophils # (A) 0.1 k/uL (0-0.2); Basophils % (A) 1 %; Eosinophils # (A) 0.1 k/uL (0-0.7); Eosinophils % (A) 2 %; HCT 41.1 % (34.0-46.0); HGB 13.5 gm/dL (11.4-16.0); Lymphocytes # (A) 1.2 k/uL (1.0-4.8); Lymphocytes % (A) 24 %; MCH 31.6 pg (25.0-35.0); MCHC 32.9 g/dL (31.0-37.0); MCV 96.2 fL (80.0-100.0); Mean Platelet Volume 7.6; Monocytes # (A) 0.3 k/uL (0-1.0); Monocytes % (A) 6 %; Neutrophils # (A) 3.2 k/uL (1.3-7.7); Neutrophils % (A) 64 %; Platelet Count 194 k/uL (150-450); RBC 4.27 m/uL (3.80-5.40); RDW 15.6 % (11.5-15.5)
[2020-12-24 08:27] LABS: Lithium <0.2 mmol/L
[2020-12-24 08:42] LABS: ALT 53 U/L (4-34); AST 84 U/L (14-36); African American GFR (CKD) >90 (>60 ml/min/1.73 sqM); Albumin 3.6 g/dL (3.5-5.0); Alkaline Phosphatase 52 U/L (38-126); Anion Gap 10 mmol/L; Bilirubin, Delta 0.2 mg/dL (0.0-0.2); Bilirubin,Unconjugated 0.6 mg/dL (0.0-1.1); Blood Urea Nitrogen 5 mg/dL (7-17); Calcium 8.7 mg/dL (8.4-10.2); Carbon Dioxide 22 mmol/L (22-30); Chloride 105 mmol/L (98-107); Cholesterol 142 mg/dL (<200); Glucose 103 mg/dL (74-99); HDL Cholesterol 71 mg/dL (40-60); LDL Cholesterol,Calculated 59 mg/dL (0-99); Non-African American GFR(CKD) >90 (>60 ml/min/1.73 sqM); Sodium 137 mmol/L (137-145); Total Bilirubin 0.8 mg/dL (0.2-1.3); Total Protein 6.6 g/dL (6.3-8.2); Triglycerides 58 mg/dL (<150)
[2020-12-24 08:53] LABS: Potassium 3.4 mmol/L (3.5-5.1)
[2020-12-24] MEDS: chlordiazePOXIDE 25 MG CAP PO SCH ×4 (09:10→20:40)
--- NOTE | 2020-12-24 13:56 | P.HP ---
Psychiatric H&P - . H&P Date: 12/24/20 History & Physical: Allergies Allergy/AdvReac Type Severity Reaction Status Date / Time haloperidol [From Haldol] Allergy Rash/Hives Verified 10/05/20 05:14 Vital Signs Temp 97.5 F L 12/24/20 07:25 Pulse 78 12/24/20 02:00 Resp 18 12/24/20 02:00 BP 122/82 12/24/20 02:00 Pulse Ox 98 12/24/20 02:00 Intake & Output 12/23/20 12/24/20 12/24/20 18:59 06:59 18:59 Weight 74.843 kg Laboratory Last Values WBC 5.0 k/uL (3.8-10.6) 12/24/20 07:50 RBC 4.27 m/uL (3.80-5.40) 12/24/20 07:50 Hgb 13.5 gm/dL (11.4-16.0) 12/24/20 07:50 Hct 41.1 % (34.0-46.0) 12/24/20 07:50 MCV 96.2 fL (80.0-100.0) 12/24/20 07:50 MCH 31.6 pg (25.0-35.0) 12/24/20 07:50 MCHC 32.9 g/dL (31.0-37.0) 12/24/20 07:50 RDW 15.6 % (11.5-15.5) H 12/24/20 07:50 Plt Count 194 k/uL (150-450) 12/24/20 07:50 MPV 7.6 12/24/20 07:50 Neutrophils % 64 % 12/24/20 07:50 Lymphocytes % 24 % 12/24/20 07:50 Monocytes % 6 % 12/24/20 07:50 Eosinophils % 2 % 12/24/20 07:50 Basophils % 1 % 12/24/20 07:50 Neutrophils # 3.2 k/uL (1.3-7.7) 12/24/20 07:50 Lymphocytes # 1.2 k/uL (1.0-4.8) 12/24/20 07:50 Monocytes # 0.3 k/uL (0-1.0) 12/24/20 07:50 Eosinophils # 0.1 k/uL (0-0.7) 12/24/20 07:50 Basophils # 0.1 k/uL (0-0.2) 12/24/20 07:50 Sodium 137 mmol/L (137-145) 12/24/20 07:50 Potassium 3.4 mmol/L (3.5-5.1) L 12/24/20 07:50 Chloride 105 mmol/L (98-107) 12/24/20 07:50 Carbon Dioxide 22 mmol/L (22-30) 12/24/20 07:50 Anion Gap 10 mmol/L 12/24/20 07:50 BUN 5 mg/dL (7-17) L 12/24/20 07:50 Creatinine 0.59 mg/dL (0.52-1.04) 12/24/20 07:50 Est GFR (CKD-EPI)AfAm >90 (>60 ml/min/1.73 sqM) 12/24/20 07:50 Est GFR (CKD-EPI)NonAf >90 (>60 ml/min/1.73 sqM) 12/24/20 07:50 Glucose 103 mg/dL (74-99) H 12/24/20 07:50 Calcium 8.7 mg/dL (8.4-10.2) 12/24/20 07:50 Total Bilirubin 0.8 mg/dL (0.2-1.3) 12/24/20 07:50 Conjugated Bilirubin 0.0 mg/dL (0.0-0.3) 12/24/20 07:50 Unconjugated Bilirubin 0.6 mg/dL (0.0-1.1) 12/24/20 07:50 Delta Bilirubin 0.2 mg/dL (0.0-0.2) 12/24/20 07:50 AST 84 U/L (14-36) H 12/24/20 07:50 ALT 53 U/L (4-34) H 12/24/20 07:50 Alkaline Phosphatase 52 U/L (38-126) 12/24/20 07:50 Total Protein 6.6 g/dL (6.3-8.2) 12/24/20 07:50 Albumin 3.6 g/dL (3.5-5.0) 12/24/20 07:50 Triglycerides 58 mg/dL (<150) 12/24/20 07:50 Cholesterol 142 mg/dL (<200) 12/24/20 07:50 LDL Cholesterol, Calc 59 mg/dL (0-99) 12/24/20 07:50 HDL Cholesterol 71 mg/dL (40-60) H 12/24/20 07:50 TSH 1.340 mIU/L (0.465-4.680) 12/24/20 07:50 Urine Color Light Yellow 12/23/20 22:30 Urine Appearance Clear (Clear) 12/23/20 22:30 Urine pH 6.0 (5.0-8.0) 12/23/20 22:30 Ur Specific [place] 1.005 (1.001-1.035) 12/23/20 22:30 Urine Protein Trace (Negative) H 12/23/20 22:30 Urine Glucose (UA) Negative (Negative) 12/23/20 22:30 Urine Ketones Negative (Negative) 12/23/20 22:30 Urine Blood Trace (Negative) H 12/23/20 22:30 Urine Nitrite Negative (Negative) 12/23/20 22:30 Urine Bilirubin Negative (Negative) 12/23/20 22:30 Urine Urobilinogen <2.0 mg/dL (<2.0) 12/23/20 22:30 Ur Leukocyte Esterase Negative (Negative) 12/23/20 22:30 Urine RBC <1 /hpf (0-5) 12/23/20 22:30 Urine WBC 1 /hpf (0-5) 12/23/20 22:30 Ur Squamous Epith Cells 5 /hpf (0-4) H 12/23/20 22:30 Amorphous Sediment Rare /hpf (None) H 12/23/20 22:30 Urine Bacteria Rare /hpf (None) H 12/23/20 22:30 Hyaline Casts 1 /lpf (0-2) 12/23/20 22:30 Urine Mucus Rare /hpf (None) H 12/23/20 22:30 Urine HCG, Qual Not Detected (Not Detectd) 12/23/20 22:30 Urine Opiates Screen Not Detected (NotDetected) 12/23/20 22:30 Ur Oxycodone Screen Not Detected (NotDetected) 12/23/20 22:30 Urine Methadone Screen Not Detected (NotDetected) 12/23/20 22:30 Ur Propoxyphene Screen Not Detected (NotDetected) 12/23/20 22:30 Ur Barbiturates Screen Not Detected (NotDetected) 12/23/20 22:30 U Tricyclic Antidepress Not Detected (NotDetected) 12/23/20 22:30 Ur Phencyclidine Scrn Not Detected (NotDetected) 12/23/20 22:30 Ur Amphetamines Screen Not Detected (NotDetected) 12/23/20 22:30 U Methamphetamines Scrn Not Detected (NotDetected) 12/23/20 22:30 U Benzodiazepines Scrn Not Detected (NotDetected) 12/23/20 22:30 [place] <0.2 mmol/L 12/24/20 07:50 Urine Cocaine Screen Not Detected (NotDetected) 12/23/20 22:30 U Marijuana (THC) Screen Detected (NotDetected) H 12/23/20 22:30 Coronavirus (PCR) Not Detected (Not Detectd) 12/24/20 04:46 12/24/20 13:30 IDENTIFYING DATA: Patient is a 40-year-old female currently lives with a friend in a house is single and has 4 kids who she is currently estranged from. HPI: Patient presented to the hospital yesterday after being found wandering around the neighborhood intoxicated and confused and was petitioned by police. Patient was found to be intoxicated with alcohol when she presented to the ER yesterday. Her UDS was positive for marijuana. Patient was last discharged from the mental health unit in September 2020. Patient was seen in her bed today and appeared to be fairly lethargic however was agreeable to speak to write in the office. She appeared to have very poor hygiene and grooming and appeared to have poor insight and judgment. She spoke about "a lot of people and things bothering me" and was fairly vague about her stressors. She did speak significantly about her roommate that she is living with and states that they are having problems and she does not trust her. She claims that she was walking around with a box of vodka and was picked up by the police brought into the hospital. She states that she's been depressed for about 2 years now. She claims that she feels helpless and hopeless. She claims to be only partially compliant with her medications and has been drinking daily approximately a fifth of vodka a day. She claims that she has mild withdrawal symptoms at this time including anxiety and tremors. She states that she also has been smoking marijuana approximately 1 g a day. She states that she has been having poor sleep and poor appetite. She claims that she has been hearing voices in the past however not currently. Patient denies any current suicidal or homicidal ideations intent or plan. Patient denies any flight of ideas racing thoughts and increased in goal directed behavior. Patient admits to using cigarettes daily, alcohol as noted above. She states that she smokes marijuana daily. PAST PSYCHIATRIC HISTORY: Patient states that she has a history of schizoaffective disorder. She claims that she used to be on lithium, Seroquel and Zoloft. She states that she has had multiple psychiatric hospitalizations in the past including at [facility] and [facility]. Patient's last psychiatric hospitalization was on the mental health unit in September 2020. She states that she was attempting to get follow-up at [facility]. She states that she overdosed once in the past and also used to cut herself. PMH: Hypertension, TBI, CAD with history of CABG. ALLERGIES: as per EMR CHEMICAL DEPENDENCY HISTORY: as per HPI FAMILY PSYCHIATRIC/SUBSTANCE USE HISTORY: States that her father suffered from depression. SOCIAL HISTORY: Patient was born and raised in [facility]. She states that she completed up to the eighth grade of school and then dropped out. She states that she has been to penitentiary twice in the past for assault and battery charges. She claims that she currently lives with a friend in a house is single and has 4 kids were strangers to her.. MENTAL STATUS EXAM: General Appearance: Patient appears to be disheveled in appearance, older than stated age is alert, difficult to redirect, and attempts to cooperate. Patient appears to have poor hygiene and grooming. Behavior: Patient is seated without any agitated behavior. Speech: Patient's speech is fluent and nonpressured. Soft tone of voice. Mumbling Mood/Affect: Patient reports their mood is depressed and anxious, affect is congruent and constricted. Suicidality/Homicidality: Patient denies having any homicidal ideation intent or plan. Denies any suicidal ideations intent or plan Perceptions: Patient denies any visual hallucinations and denies any auditory hallucinations Though content/process: Rambles, tangential/circumstantial. Logical. Endorses mild paranoia. Memory and concentration: AOX3, grossly intact for the purposes of this session. Can spell "WORLD" backwards Judgment and insight: poor STRENGTHS/WEAKNESSES: strength is that patient is resilient. Weakness is that patient has poor judgment INTELLECT: average IMPRESSIONS: Schizoaffective disorder, depressive type History of TBI Alcohol use disorder, currently in withdrawal Cannabis use disorder Nicotine dependence PLAN: -Patient is admitted under voluntary status to MHU for stabilization of psychiatric symptoms and safety. Patient has signed adult voluntary form and medication consent and is placed in patient's chart. -Medications : Will start patient on Seroquel 50 mg daily at bedtime for mood stabilization/insomnia. Will also start patient on lithium 300 mg twice a day for mood stabilization. We'll start Librium taper, 25 mg 4 times a day for alcohol withdrawal. Started patient on Cymbalta 30 mg daily for mood/an xiety/pain. -Ativan and Prolixin PRN for agitation/aggression -Started thiamine, MVM for etoh use -CIWA protocol with Ativan PRN for ETOH withdrawal -Patient was counselled on substance abuse and desired to cut back on use -Patient was informed of the risks, benefits and side effects of the medication and patient verbally consented to taking the medications. Patient signed med consent form and was placed in chart. -Internal Medicine consult to perform medical evaluation and physical. -NRT - nicotine patch -SW on board for discharge planning. Encourage patient to participate in groups to work on coping skills. Patient claims that she is willing to go to rehab upon d/c. 12/24/20 13:45
[2020-12-24] MEDS: DULoxetine HCL 30 MG CAPSULE.DR PO SCH (14:48)
[2020-12-24] MEDS: LITHIUM CARBONATE 300 MG CAP PO SCH ×2 (14:49→20:40)
[2020-12-24 17:02] LABS: Hemoglobin A1C 5.3 % (4.0-6.0)
[2020-12-24] MEDS ORDERED: QUEtiapine 50 MG TAB PO SCH (21:00)
--- NOTE | 2020-12-24 23:21 | P.CONS ---
History of Present Illness - Reason for Consult Consult date: 12/24/20 - History of Present Illness The patient was seen with the MHU RN. I was never alone with the patient. Patient is a 40-year-old female with a PMH of EtOH abuse, coronary artery disease, bipolar disorder, and tobacco abuse who was brought into the emergency room for alcohol intoxication. The patient was admitted to the mental health unit where she was seen and evaluated. The patient reports that she has been drinking a pint of vodka daily for the past 3-4 years. She reports a history of alcohol withdrawal seizures as well as hospitalizations due to intoxication. She notes that her last drink was yesterday prior to coming to the emergency room. She notes that police was called for her when she was found wandering since she had become lost after a heavy day of drinking. The patient reports that she is currently homeless and does not take her medications. He denied additional complaints. She denied chest pain, shortness of breath, fever, chills, cough, nausea, vomiting, abdominal pain, diarrhea. Laboratory evaluation from the emergency room was reviewed. Review of Systems Pertinent positives and negatives as discussed in HPI, a complete review of systems was performed and all other systems are negative. Past Medical History Past Medical History: Dementia, Hypertension History of Any Multi-Drug Resistant Organisms: None Reported Past Surgical History: Coronary Bypass/CABG, Heart Catheterization With Stent Past Anesthesia/Blood Transfusion Reactions: No Reported Reaction Date of Last Stent Placement:: unknown. Past Psychological History: Anxiety, Bipolar, Depression, Panic Disorder, PTSD, Schizophrenia Smoking Status: Current every day smoker, Vaper Past Alcohol Use History: Daily Past Drug Use History: Marijuana Medications and Allergies Home Medications Medication Instructions Recorded Confirmed Type [place] Carbonate 300 mg PO BID 30 Days cap 10/09/20 12/24/20 Rx Acetaminophen/Pamabrom [Midol 1 - 2 tab PO DAILY PRN 12/24/20 12/24/20 History Caplet] QUEtiapine FUMARATE [SEROquel XR] 150 mg PO HS 12/24/20 12/24/20 History QUEtiapine FUMARATE [SEROquel] 25 mg PO BID 12/24/20 12/24/20 History Sertraline [Zoloft] 100 mg PO DAILY 12/24/20 12/24/20 History diphenhydrAMINE HCL [Benadryl] 25 mg PO DAILY PRN 12/24/20 12/24/20 History Allergies Allergy/AdvReac Type Severity Reaction Status Date / Time haloperidol [From Haldol] Allergy Rash/Hives Verified 10/05/20 05:14 Physical Exam Vitals: Vital Signs Temp Pulse Resp BP Pulse Ox 12/24/20 07:25 97.5 F L 12/24/20 02:00 78 18 122/82 98 12/23/20 22:11 98.5 F 98 20 179/82 98 General: Disheveled, no distress, appears older than stated age, overweight Derm: no unusual rashes/lesions no unusual ecchymoses, warm, dry Head: atraumatic, normocephalic, symmetric Eyes: EOMI, no lid lag, anicteric sclera, pupils equal round reactive to light ENT: Nose and ears atraumatic, no thrush, no pharyngeal erythema Neck: No thyromegaly, no cervical lymphadenopathy, trachea midline, supple Mouth: no lip lesion, mucus membranes moist Cardiovascular: S1S2 reg, no murmur, positive posterior tibial pulse bilateral, no edema, capillary refill less than 2 seconds Lungs: CTA bilateral, no rhonchi, no rales , no accessory muscle use Abdominal: soft, nontender to palpation, no guarding, no appreciable organomegaly, normal bowel sounds Ext: no gross muscle atrophy, muscle strength 5 out of 5 in all 4 extremities grossly, no contractures, minimal outstretched hand tremor, Neuro: CN II-XI grossly intact, light touch intact all 4 extremities, finger to nose within normal limits, no tongue fasciculations noted Psych: Alert, oriented, appropriate affect Results CBC & Chem 7: 12/24/20 07:50 12/24/20 07:50 Labs: Abnormal Lab Results - Last 24 Hours (Table) 12/23/20 12/24/20 12/24/20 Range/Units 22:30 07:50 07:50 RDW 15.6 H (11.5-15.5) % Potassium 3.4 L (3.5-5.1) mmol/L BUN 5 L (7-17) mg/dL Glucose 103 H (74-99) mg/dL AST 84 H (14-36) U/L ALT 53 H (4-34) U/L HDL Cholesterol 71 H (40-60) mg/dL Urine Protein Trace H (Negative) Urine Blood Trace H (Negative) Ur Squamous Epith Cells 5 H (0-4) /hpf Amorphous Sediment Rare H (None) /hpf Urine Bacteria Rare H (None) /hpf Urine Mucus Rare H (None) /hpf U Marijuana (THC) Screen Detected H (NotDetected) Assessment and Plan Plan: Alcohol abuse, impending withdrawal -Thiamine, multivitamin -C/w Librium -Advised on importance of cessation -Monitor CIWA Hypokalemia -Replace and monitor Abnormal LFTs, likely due to EtOH abuse -Monitor for now Reported history of coronary artery disease and hypertension -Patient is not on antiplatelets as per her home medication list -Start aspirin -Monitor blood pressure and start antihypertensives as needed Thank you for allowing us to participate in the care of this patient. We will follow peripherally. Do not hesitate to contact us with questions. Someone can be reached from the [facility] hospitalist group at all hours of the day at [phone].
[2020-12-25] MEDS: LORazepam 1 MG TAB PO PRN (06:34)
[2020-12-25] MEDS: ASPIRIN 81 MG PO SCH (09:46)
[2020-12-25] MEDS: chlordiazePOXIDE 25 MG CAP PO SCH (09:46)
[2020-12-25] MEDS: MULTIVITAMINS, THERA 1 EACH TAB PO SCH (09:46)
[2020-12-25] MEDS: LITHIUM CARBONATE 300 MG CAP PO SCH ×2 (09:46→20:49)
[2020-12-25] MEDS: NICOTINE 21MG/24HR PATCH TRANSDERM SCH (09:46)
[2020-12-25] MEDS: FOLIC ACID 1 MG TAB PO SCH (09:46)
[2020-12-25] MEDS: DULoxetine HCL 30 MG CAPSULE.DR PO SCH (09:46)
[2020-12-25] MEDS: THIAMINE 100 MG TAB PO SCH (09:56)
--- NOTE | 2020-12-25 10:24 | P.PN ---
Progress Note - Text Progress Note Date: 12/25/20 Interval History: Patient was seen in her room this morning and was directable and agreeable to speak with field underwriter in the office. Patient appeared to be more cooperative with the interview and appeared to be more awake today. She rambled at times and was bizarre in her thought content and thanked field underwriter several times during the interview because "you care". She appeared to be more goal oriented today and states that she had several awakenings last night and needed and Ativan early this morning for anxiety. She states that her mood has been gradually improving however she still feels "depressed and hopeless". She states that she has been eating more and drinking water during the day. She states that she is upset that she is in the hospital and was asking questions about her medications today. At this time patient denies any suicidal or homical ideations, intent or plan. Patient denies any auditory, visual hallucinations. Patient denies any side effects from the medications and has been compliant with meds. Mental Status Exam: General Appearance: Patient appears to be disheveled in appearance, older than stated age is alert, more directable today, and attempts to cooperate. Patient appears to have poor hygiene and grooming. Behavior: Patient is seated without any agitated behavior. Bizarre at times Speech: Patient's speech is fluent and nonpressured. Mumbling Mood/Affect: Patient reports their mood is depressed and anxious, affect is congruent and constricted. Suicidality/Homicidality: Patient denies having any homicidal ideation intent or plan. Denies any suicidal ideations intent or plan Perceptions: Patient denies any visual hallucinations and denies any auditory hallucinations Though content/process: Rambles, tangential/circumstantial. Logical. Endorses mild paranoia, improving mildly Memory and concentration: AOX3, grossly intact for the purposes of this session Judgment and insight: poor, improving mildly Assessment Schizoaffective disorder, depressive type History of TBI Alcohol use disorder, currently in withdrawal Cannabis use disorder Nicotine dependence Plan: -Patient continues to meet criteria for inpatient psychiatric admission for symptom stabilization and safety. Patient has signed adult voluntary form and medication consent and was placed in patient's chart. -Medications: Increase Seroquel to 100 mg daily at bedtime for mood stabilization/insomnia, lithium 300 mg twice a day for mood stabilization, decreased Librium to 20 mg 4 times a day for alcohol withdrawal. Increase Cymbalta to 60 mg daily for mood/anxiety/pain. -thiamine, MVM for etoh use -CIWA protocol with Ativan PRN for ETOH withdrawal -When necessary Ativan and Haldol for agitation/aggression. -NRT - nicotine patch -SW on board for discharge planning. Encouraged the patient to participate in milieu. Patient claims that she is willing to go to rehab upon d/c. likely discharge in 1-2 days.
[2020-12-25] MEDS: QUEtiapine 100 MG TAB PO SCH (20:49)
[2020-12-26] MEDS: LORazepam 1 MG TAB PO PRN ×2 (04:21→21:55)
[2020-12-26] MEDS: NICOTINE 21MG/24HR PATCH TRANSDERM SCH (09:07)
[2020-12-26] MEDS: FOLIC ACID 1 MG TAB PO SCH (09:08)
[2020-12-26] MEDS: DULoxetine HCL 60 MG CAPSULE.DR PO SCH (09:08)
[2020-12-26] MEDS: THIAMINE 100 MG TAB PO SCH (09:08)
[2020-12-26] MEDS: ASPIRIN 81 MG PO SCH (09:08)
[2020-12-26] MEDS: LITHIUM CARBONATE 300 MG CAP PO SCH ×2 (09:08→20:16)
[2020-12-26] MEDS: MULTIVITAMINS, THERA 1 EACH TAB PO SCH (09:08)
--- NOTE | 2020-12-26 09:50 | P.PN ---
Progress Note - Text Progress Note Date: 12/26/20 Interval History: Patient was seen wandering the hallways this morning and was directable and ag reeable to speak with promotion writer in the office. Patient appeared to be more cooperative and more directable today with promotion writer. She continues to ramble at times and speak negatively about her friend/roommate that she lives with. She continues to state that she is being treated like a "child" and wants to make plans to eventually leave the house. She does not give a clear plan as to where she wants to go. She appeared to be more goal oriented today and states that she had better sleep last night on the increase in the Seroquel. Commissary Steward spoke with patient again about rehab and patient today claims that "I don't need rehab" and continues to downplay her alcohol use. She states that her mood has been gradually improving. At this time patient denies any suicidal or homical ideations, intent or plan. Patient denies any auditory, visual hallucinations. Patient denies any side effects from the medications and has been compliant with meds. Mental Status Exam: General Appearance: Patient appears to be disheveled in appearance, older than stated age is alert, more directable today, and attempts to cooperate. Patient appears to have improving hygiene and grooming. Behavior: Patient is seated without any agitated behavior. Bizarre at times Speech: Patient's speech is fluent and nonpressured. Mumbling Mood/Affect: Patient reports their mood is improving, affect is congruent and constricted. Suicidality/Homicidality: Patient denies having any homicidal ideation intent or plan. Denies any suicidal ideations intent or plan Perceptions: Patient denies any visual hallucinations and denies any auditory hallucinations Though content/process: Rambles, tangential/circumstantial. Logical Memory and concentration: AOX3, grossly intact for the purposes of this session Judgment and insight: Chronically poor, improving mildly Assessment Schizoaffective disorder, depressive type History of TBI Alcohol use disorder, currently in withdrawal Cannabis use disorder Nicotine dependence Plan: -Patient continues to meet criteria for inpatient psychiatric admission for symptom stabilization and safety. Patient has signed adult voluntary form and medication consent and was placed in patient's chart. -Medications: continue with Seroquel 100 mg daily at bedtime for mood stabilization/insomnia, lithium 300 mg twice a day for mood stabilization, decreased Librium to 20 mg 3 times a day for alcohol withdrawal. continue with Cymbalta 60 mg daily for mood/anxiety/pain -thiamine, MVM for etoh use -CIWA protocol with Ativan PRN for ETOH withdrawal -When necessary Ativan and Haldol for agitation/aggression -NRT - nicotine patch -SW on board for discharge planning. Encouraged the patient to participate in milieu. Patient claims that she is willing to go to rehab upon d/c. likely discharge tomorrow.
[2020-12-26] MEDS: QUEtiapine 100 MG TAB PO SCH (20:16)
[2020-12-27 06:38] VITALS: BP 106/63; PULSE 58; RESP 16; TEMP 97.9
[2020-12-27] MEDS: ASPIRIN 81 MG PO SCH (08:57)
[2020-12-27] MEDS: NICOTINE 21MG/24HR PATCH TRANSDERM SCH (08:57)
[2020-12-27] MEDS: FOLIC ACID 1 MG TAB PO SCH (08:58)
[2020-12-27] MEDS: DULoxetine HCL 60 MG CAPSULE.DR PO SCH (08:58)
[2020-12-27] MEDS: THIAMINE 100 MG TAB PO SCH (08:58)
[2020-12-27] MEDS: LITHIUM CARBONATE 300 MG CAP PO SCH (08:58)
[2020-12-27] MEDS: MULTIVITAMINS, THERA 1 EACH TAB PO SCH (08:58)
--- NOTE | 2020-12-27 10:23 | P.DS ---
Providers Date of admission: 12/24/20 06:12 Expected date of discharge: 12/27/20 Attending physician: Ryan Galicia MD Consults: 12/24/20 06:18 Consult Physician Routine Consulting Provider: Sherri Westbrook Consult Reason/Comments: Medical H and P Do you want consulting provider notified?: Yes Primary care physician: Stated None - Discharge Diagnosis(es) (1) Schizoaffective disorder, depressive type Current Visit: Yes Status: Acute Priority: High (2) History of traumatic brain injury Current Visit: Yes Status: Acute Priority: Medium (3) Alcohol use disorder Current Visit: Yes Status: Acute Priority: High (4) Cannabis use disorder, mild, abuse Current Visit: Yes Status: Acute Priority: Low (5) Nicotine dependence Current Visit: Yes Status: Acute Priority: Low Hospital Course: Admission HPI: Admission note was completed by law writer " Patient is a 40-year-old f emale currently lives with a friend in a house is single and has 4 kids who she is currently estranged from. Patient presented to the hospital yesterday after being found wandering around the neighborhood intoxicated and confused and was petitioned by police. Patient was found to be intoxicated with alcohol when she presented to the ER yesterday. Her UDS was positive for marijuana. Patient was last discharged from the mental health unit in September 2020. Patient was seen in her bed today and appeared to be fairly lethargic however was agreeable to speak to write in the office. She appeared to have very poor hygiene and grooming and appeared to have poor insight and judgment. She spoke about "a lot of people and things bothering me" and was fairly vague about her stressors. She did speak significantly about her roommate that she is living with and states that they are having problems and she does not trust her. She claims that she was walking around with a box of vodka and was picked up by the police brought into the hospital. She states that she's been depressed for about 2 years now. She claims that she feels helpless and hopeless. She claims to be only partially compliant with her medications and has been drinking daily approximately a fifth of vodka a day. She claims that she has mild withdrawal symptoms at this time including anxiety and tremors. She states that she also has been smoking marijuana approximately 1 g a day. She states that she has been having poor sleep and poor appetite. She claims that she has been hearing voices in the past however not currently. Patient denies any current suicidal or homicidal ideations intent or plan. Patient denies any flight of ideas racing thoughts and increased in goal directed behavior. Patient admits to using cigarettes daily, alcohol as noted above. She states that she smokes marijuana daily." Hospital course: Upon admission to the unit patient was initially depressed, bizarre and going through withdrawals. Patient was however directable and agreeable to commence treatment and signed adult voluntary form. Patient got along well with other patients on the unit and followed unit protocol. Patient was compliant with the medications and denied any side effects throughout hospital course. Patient was started on Seroquel and titrated up to dose 100 mg daily at bedtime for mood stabilization/psychosis/insomnia. Patient was also started on lithium 300 mg twice a day for mood stabilization and also placed on Cymbalta which is titrated up to dose of 60 mg daily for mood/anxiety/pain. Due to patient's alcohol withdrawal symptoms, patient was placed on a standing dose of Librium which was gradually tapered down during her hospitalization. Patient was also put on CIWA protocol for etoh withdrawal with prn ativan. Patient spoke of her stressors and engaged in therapy both group and individual. Patient was also seen by medical team for history and physical exam. Throughout the course of the hospitalization patient gradually improved with regards to mood, anxiety, psychosis, withdrawals, sleep and return back to her baseline level of functioning. On the day of discharge patient denied any suicidal or homicidal ideations intent or plan denied any auditory or visual hallucinations. Patient endorsed wanting to live for her future and to stop drinking alcohol. The patient denied any access to guns or weapons. Patient denied any paranoia and did not endorse any delusions. Patient does have a significant history of substance abuse and was counseled on abstaining from all substances including alcohol and marijuana. Patient was offered however declined inpatient substance-abuse rehab. Patient elected to do outpatient substance use treatment program through [facility]. Patient was also counseled on the medications and need for regular compliance and was encouraged to follow-up with their outpatient appointment for mental health and also for primary care. Mental status exam: General Appearance: Patient appears to be older than stated age is alert, directable, and cooperative. Patient is in no acute distress and has improved hygiene and grooming Behavior: Patient is calmly seated without any agitated behavior. More directable today Speech: Patient's speech is fluent and nonpressured. Mood/Affect: Patient reports their mood is "ok", affect is congruent and constricted Suicidality/Homicidality: Patient denies having any suicidal or homicidal ideation intent or plan. Perceptions: Patient denies any auditory or visual hallucinations. Though content/process: Patient is more goal oriented today. More logical. Not endorsing any paranoia or delusions. Memory and concentration: AOX3, grossly intact for the purposes of this session. Can spell "WORLD" backwards correctly. Judgment and insight: chronically poor, however has improved with guarded prognosis Impression: Schizoaffective disorder depressive type Alcohol use disorder severe Cannabis use disorder Nicotine dependence Plan: -Continue with discharge today as patient has improved and stabilized psychiatrically and is not currently an imminent threat to herself and/or others. Patient will remain at chronically elevated risk for harm to self and/or others due to her impulsivity, chronically poor insight and judgment and polysubstance abuse. -Continue medications: Seroquel 100 mg daily at bedtime for mood stabil ization/insomnia, lithium 300 mg daily twice a day for mood stabilization. librium was discontinued prior to d/c. continue with cymbalta 60mg daily for mood/anxiety/pain. -Patient was counseled on the need for medication compliance and appropriate follow-up at mental health and also primary care for medical issues. Patient verbalized understanding and agreed. -Social work to arrange for and conduct family meeting to ensure safety upon discharge and answer any questions/concerns. Social work also to arrange for patients follow up appointments with [facility] for psychiatric care along with follow up with primary care provider. -Patient counseled on abstaining from recreational drugs and marijuana and alcohol. Was informed/educated on the adverse effects on their physical and mental health. Patient verbally agreed and understood. Patient was offered substance abuse treatment however declined at this time. -Patient was instructed to return to the hospital or seek immediate medical care if their psychiatric or medical symptoms do worsen or reoccur. Allergies Allergy/AdvReac Type Severity Reaction Status Date / Time haloperidol [From Haldol] Allergy Rash/Hives Verified 10/05/20 05:14 Laboratory Results WBC 5.0 k/uL (3.8-10.6) 12/24/20 07:50 RBC 4.27 m/uL (3.80-5.40) 12/24/20 07:50 Hgb 13.5 gm/dL (11.4-16.0) 12/24/20 07:50 Hct 41.1 % (34.0-46.0) 12/24/20 07:50 MCV 96.2 fL (80.0-100.0) 12/24/20 07:50 MCH 31.6 pg (25.0-35.0) 12/24/20 07:50 MCHC 32.9 g/dL (31.0-37.0) 12/24/20 07:50 RDW 15.6 % (11.5-15.5) H 12/24/20 07:50 Plt Count 194 k/uL (150-450) 12/24/20 07:50 MPV 7.6 12/24/20 07:50 Neutrophils % 64 % 12/24/20 07:50 Lymphocytes % 24 % 12/24/20 07:50 Monocytes % 6 % 12/24/20 07:50 Eosinophils % 2 % 12/24/20 07:50 Basophils % 1 % 12/24/20 07:50 Neutrophils # 3.2 k/uL (1.3-7.7) 12/24/20 07:50 Lymphocytes # 1.2 k/uL (1.0-4.8) 12/24/20 07:50 Monocytes # 0.3 k/uL (0-1.0) 12/24/20 07:50 Eosinophils # 0.1 k/uL (0-0.7) 12/24/20 07:50 Basophils # 0.1 k/uL (0-0.2) 12/24/20 07:50 Sodium 137 mmol/L (137-145) 12/24/20 07:50 Potassium 3.4 mmol/L (3.5-5.1) L 12/24/20 07:50 Chloride 105 mmol/L (98-107) 12/24/20 07:50 Carbon Dioxide 22 mmol/L (22-30) 12/24/20 07:50 Anion Gap 10 mmol/L 12/24/20 07:50 BUN 5 mg/dL (7-17) L 12/24/20 07:50 Creatinine 0.59 mg/dL (0.52-1.04) 12/24/20 07:50 Est GFR (CKD-EPI)AfAm >90 (>60 ml/min/1.73 sqM) 12/24/20 07:50 Est GFR (CKD-EPI)NonAf >90 (>60 ml/min/1.73 sqM) 12/24/20 07:50 Glucose 103 mg/dL (74-99) H 12/24/20 07:[address] Glu mg/dL 105 12/24/20 07:50 Hemoglobin A1c 5.3 % (4.0-6.0) 12/24/20 07:50 Calcium 8.7 mg/dL (8.4-10.2) 12/24/20 07:50 Total Bilirubin 0.8 mg/dL (0.2-1.3) 12/24/20 07:50 Conjugated Bilirubin 0.0 mg/dL (0.0-0.3) 12/24/20 07:50 Unconjugated Bilirubin 0.6 mg/dL (0.0-1.1) 12/24/20 07:50 Delta Bilirubin 0.2 mg/dL (0.0-0.2) 12/24/20 07:50 AST 84 U/L (14-36) H 12/24/20 07:50 ALT 53 U/L (4-34) H 12/24/20 07:50 Alkaline Phosphatase 52 U/L (38-126) 12/24/20 07:50 Total Protein 6.6 g/dL (6.3-8.2) 12/24/20 07:50 Albumin 3.6 g/dL (3.5-5.0) 12/24/20 07:50 Triglycerides 58 mg/dL (<150) 12/24/20 07:50 Cholesterol 142 mg/dL (<200) 12/24/20 07:50 LDL Cholesterol, Calc 59 mg/dL (0-99) 12/24/20 07:50 HDL Cholesterol 71 mg/dL (40-60) H 12/24/20 07:50 TSH 1.340 mIU/L (0.465-4.680) 12/24/20 07:50 Urine Color Light Yellow 12/23/20 22:30 Urine Appearance Clear (Clear) 12/23/20 22:30 Urine pH 6.0 (5.0-8.0) 12/23/20 22:30 Ur Specific [place] 1.005 (1.001-1.035) 12/23/20 22:30 Urine Protein Trace (Negative) H 12/23/20 22:30 Urine Glucose (UA) Negative (Negative) 12/23/20 22:30 Urine Ketones Negative (Negative) 12/23/20 22:30 Urine Blood Trace (Negative) H 12/23/20 22:30 Urine Nitrite Negative (Negative) 12/23/20 22:30 Urine Bilirubin Negative (Negative) 12/23/20 22:30 Urine Urobilinogen <2.0 mg/dL (<2.0) 12/23/20 22:30 Ur Leukocyte Esterase Negative (Negative) 12/23/20 22:30 Urine RBC <1 /hpf (0-5) 12/23/20 22:30 Urine WBC 1 /hpf (0-5) 12/23/20 22:30 Ur Squamous Epith Cells 5 /hpf (0-4) H 12/23/20 22:30 Amorphous Sediment Rare /hpf (None) H 12/23/20 22:30 Urine Bacteria Rare /hpf (None) H 12/23/20 22:30 Hyaline Casts 1 /lpf (0-2) 12/23/20 22:30 Urine Mucus Rare /hpf (None) H 12/23/20 22:30 Urine HCG, Qual Not Detected (Not Detectd) 12/23/20 22:30 Urine Opiates Screen Not Detected (NotDetected) 12/23/20 22:30 Ur Oxycodone Screen Not Detected (NotDetected) 12/23/20 22:30 Urine Methadone Screen Not Detected (NotDetected) 12/23/20 22:30 Ur Propoxyphene Screen Not Detected (NotDetected) 12/23/20 22:30 Ur Barbiturates Screen Not Detected (NotDetected) 12/23/20 22:30 U Tricyclic Antidepress Not Detected (NotDetected) 12/23/20 22:30 Ur Phencyclidine Scrn Not Detected (NotDetected) 12/23/20 22:30 Ur Amphetamines Screen Not Detected (NotDetected) 12/23/20 22:30 U Methamphetamines Scrn Not Detected (NotDetected) 12/23/20 22:30 U Benzodiazepines Scrn Not Detected (NotDetected) 12/23/20 22:30 [place] <0.2 mmol/L 12/24/20 07:50 Urine Cocaine Screen Not Detected (NotDetected) 12/23/20 22:30 U Marijuana (THC) Screen Detected (NotDetected) H 12/23/20 22:30 Coronavirus (PCR) Not Detected (Not Detectd) 12/24/20 04:46 Vital Signs Temp 97.9 F 12/27/20 06:37 Pulse 58 L 12/27/20 06:37 Resp 16 12/27/20 06:37 BP 106/63 12/27/20 06:37 Pulse Ox 97 12/25/20 06:34 Patient Condition at Discharge: Stable Plan - Discharge Summary New Discharge Prescriptions: New Nicotine 21Mg/24Hr Patch [Habitrol] 1 patch TRANSDERM DAILY 14 Days patch QUEtiapine [SEROquel] 100 mg PO HS 30 Days tab Aspirin 81 mg PO DAILY 30 Days chew DULoxetine HCL [Cymbalta] 60 mg PO DAILY 30 Days capsule. Folic Acid 1 mg PO DAILY 30 Days tab [place] Carbonate 300 mg PO BID 30 Days cap Multivitamins, Thera [Multivitamin (formulary)] 1 each PO DAILY 30 Days tab Thiamine [Vitamin B-1] 100 mg PO DAILY 30 Days tab Discontinued [place] Carbonate 300 mg PO BID 30 Days cap Acetaminophen/Pamabrom [Midol Caplet] 1 - 2 tab PO DAILY PRN PRN Reason: Menstrual Cramps QUEtiapine FUMARATE [SEROquel] 25 mg PO BID diphenhydrAMINE HCL [Benadryl] 25 mg PO DAILY PRN PRN Reason: Allergy Symptoms Sertraline [Zoloft] 100 mg PO DAILY QUEtiapine FUMARATE [SEROquel XR] 150 mg PO HS Discharge Medication List Aspirin 81 mg PO DAILY 30 Days chew 12/27/20 [Rx] DULoxetine HCL [Cymbalta] 60 mg PO DAILY 30 Days capsule. 12/27/20 [Rx] Folic Acid 1 mg PO DAILY 30 Days tab 12/27/20 [Rx] [place] Carbonate 300 mg PO BID 30 Days cap 12/27/20 [Rx] Multivitamins, Thera [Multivitamin (formulary)] 1 each PO DAILY 30 Days tab 12/27/20 [Rx] Nicotine 21Mg/24Hr Patch [Habitrol] 1 patch TRANSDERM DAILY 14 Days patch 12/27/20 [Rx] QUEtiapine [SEROquel] 100 mg PO HS 30 Days tab 12/27/20 [Rx] Thiamine [Vitamin B-1] 100 mg PO DAILY 30 Days tab 12/27/20 [Rx] Follow up Appointment(s)/Referral(s): None,Stated [Primary Care Provider] - 1-2 days Activity/Diet/Wound Care/Special Instructions: Activity and diet as tolerated. Avoid the use of street drugs and alcohol. Take all medications as prescribed. When you are in need of refills on your medications please contact your medical provider and/or outpatient psychiatrist to have this done. Please go to scheduled outpatient appointment for aftercare treatment. If symptoms return or become worse, call the crisis line at and/or go to the nearest emergency room for evaluation. Discharge Disposition: HOME SELF-CARE
== END 2020-12-27 15:55 | disposition home or self-care (01) | DRG 885 ==
LOC: EC 22:09 → 3MHU 12-24 06:12
PROVIDERS: ADMIT Psychiatry & Neurology Psychiatry; ATTEND Psychiatry & Neurology Psychiatry
DX: F25.1 Schizoaffective disorder, depressive type (principal); F10.239 Alcohol dependence with withdrawal, unspecified; F12.159 Cannabis abuse with psychotic disorder, unspecified; F17.210 Nicotine dependence, cigarettes, uncomplicated; F31.9 Bipolar disorder, unspecified; F41.0 Panic disorder [episodic paroxysmal anxiety]; F43.10 Post-traumatic stress disorder, unspecified; G47.00 Insomnia, unspecified; I10 Essential (primary) hypertension; I25.10 Atherosclerotic heart disease of native coronary artery without angina pectoris; Z59.0 Homelessness; F03.90 Unspecified dementia, unspecified severity, without behavioral disturbance, psychotic disturbance, mood disturbance, and anxiety; Z63.8 Other specified problems related to primary support group; Z79.899 Other long term (current) drug therapy; Z81.8 Family history of other mental and behavioral disorders; Z87.820 Personal history of traumatic brain injury; Z95.1 Presence of aortocoronary bypass graft; Z20.822 Contact with and (suspected) exposure to COVID-19
CPT/HCPCS: 80053; 80061; 80178; 80306; 81001; 81025; 82075; 82248; 83036; 84443; 85025; 87635; 96372; 99285